=== PATIENT | female | born 1960 | race Caucasian/White ===

== ENCOUNTER 2017-08-22 19:26 | Emergency (ER) | payer BC, OTHER ==
--- NOTE | 2017-08-22 19:30 | PDOC ---
History of Present Illness - General History Source: Patient Exam Limitations: No Limitations - History of Present Illness Initial Comments: 08/22/17 20:02 The patient is a 56 year old female, (all live ) with past medical history of UTI (3 months ago), migraine headache, and lumbar disc disease presents to the emergency department with vaginal bleeding. The patient reports 3 weeks ago she started to experience pain similar to when she was ovulating in the past accompanied with vaginal itching. The week following she experienced breast pain. The patient reports yesterday she had suprepubic pain that radiates to her back with vaginal spotting. The patient reports she woke up today with heavy vaginal bleeding (10 pads changed since morning), shakes, headache and fatigue, took a advil in the morning with relief. The patient reports her LMP was 3 year ago and shes 3 year s/p menopause. 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 Denies chest pain, sob. Denies any history of anemia. Denies dizziness or lightheadedness. Denies nausea, vomiting, diarrhea or constipation. Denies any vaginal discharge. Denies dysuria, hematuria, frequency or urgency to urinate. Allergies: clindamycin and erythromycin base Social history: None history of smoking or illicit drugs use. Reports the occasional use of alcohol. Surgical history: None reported. PCP: Dr. Jason George <Sue Schaffer - Last Filed: 08/22/17 20:23> <Emily Cortes - Last Filed: 08/23/17 01:04> - General Chief Complaint: Vaginal Bleeding Stated Complaint: VAGINAL BLEEDING Time Seen by Provider: 08/22/17 19:29 Past History <Sue Schaffer - Last Filed: 08/22/17 20:23> - Suicide/Smoking/Psychosocial Hx Smoking History: Never smoked Hx Alcohol Use: No Drug/Substance Use Hx: No Substance Use Type: None <Emily Cortes - Last Filed: 08/23/17 01:04> - Past Medical History Allergies/Adverse Reactions: Allergies Allergy/AdvReac Type Severity Reaction Status Date / Time clindamycin Allergy Rash Verified 07/08/15 11:07 erythromycin base Allergy Verified 07/08/15 11:07 Home Medications: Ambulatory Orders NK [No Known Home Medication] 08/22/17 Review of Systems - Review of Systems Able to Perform ROS?: Yes Comments:: 08/22/17 20:07 CONSTITUTIONAL: Absent: fever, no chills, no fatigue EYES: Absent: visual changes ENT: Absent: ear pain, no sore throat CARDIOVASCULAR: Absent: chest pain, no palpitations RESPIRATORY: Absent: cough, no SOB GI: (+) suprapubic pain that radiates to her back. Absent: abdominal pain, no nausea, no vomiting, no constipation, no diarrhea GENITOURINARY: (+) heavy vaginal bleeding. Absent: dysuria, no frequency, no hematuria MUSKULOSKELETAL: Absent: back pain, no arthralgia, no myalgia SKIN: Absent: rash NEURO: Absent: headache <Sue Schaffer - Last Filed: 08/22/17 20:23> *Physical Exam - Vital Signs Last Vital Signs Temp Pulse Resp BP Pulse Ox 98.9 F 70 16 140/75 100 08/22/17 19:27 08/22/17 19:27 08/22/17 19:27 08/22/17 19:27 08/22/17 19:27 - Physical Exam Comments: 08/22/17 20:12 GENERAL: The patient is awake, alert, and fully oriented, in no acute distress. HEAD: Normal with no signs of trauma. EYES: Pupils equal, round and reactive to light, extraocular movements intact, sclera anicteric, conjunctiva clear with no pallor. ENT: Ears normal, nares patent, oropharynx clear without exudates. Moist mucous membranes. NECK: Normal range of motion, supple without lymphadenopathy, JVD, or masses. LUNGS: Breath sounds equal, clear to auscultation bilaterally. No wheeze/ crackles. HEART: Regular rate and rhythm, normal S1 and S2 without murmur or rub. ABDOMEN: (+) Suprapubic tenderness without guarding or rebound. No masses palpated.BS wnl. No hepatosplenomegaly. Pelvic: (+) Normal female external genitalia. Liquid blood without clots or vaginal clots. No masses or any other abnormalities. Cervix closed normal appearing without cervical motion tenderness. No adnexal tenderness or masses. EXTREMITIES: Normal range of motion, no edema. No clubbing or cyanosis. No cords, erythema, or tenderness. NEUROLOGICAL: Cranial nerves II through XII grossly intact. Normal speech, normal gait. PSYCH: Normal mood, normal affect. SKIN: Warm, Dry, normal turgor, no rashes or lesions noted. 08/22/17 20:23 <Sue Schaffer - Last Filed: 08/22/17 20:23> ED Treatment Course - LABORATORY CBC & Chemistry Diagram: 08/22/17 20:05 08/22/17 20:05 - ADDITIONAL ORDERS Additional order review: Laboratory Results 08/22/17 19:40 Urine Color Yellow Urine Appearance Clear Urine pH 8.0 Ur Specific [place] 1.015 Urine Protein Negative Urine Glucose (UA) Negative Urine Ketones Negative Urine Blood 2+ H Urine Nitrite Negative Urine Bilirubin Negative Urine Urobilinogen 0.2 Ur Leukocyte Esterase Negative Urine HCG, Qual Negative <Sue Schaffer - Last Filed: 08/22/17 20:23> - LABORATORY CBC & Chemistry Diagram: 08/22/17 20:05 08/22/17 20:05 <Emily Cortes - Last Filed: 08/23/17 01:04> Progress Note - Progress Note Progress Note: Documentation has been prepared under my direction and personally reviewed by me in its entirety. I attest that this documented accurately reflects all work, treatment, procedures and medical decision making performed by me. <Emily Cortes - Last Filed: 08/23/17 01:04> Medical Decision Making - Medical Decision Making 08/22/17 20:13 Documentation prepared by Sue Schaffer, acting as medical device sales representative for Emily Cortes MD. <Sue Schaffer - Last Filed: 08/22/17 20:23> - Medical Decision Making As noted above, this 56-year-old woman with history of menopause 2 years, presents with 2 day history of vaginal bleeding, accompanied by suprapubic and lower back pain. Of note, the patient had felt signs of ovulation a few weeks ago including breast tenderness and pelvic discomfort (similar to what she had felt during ovulation when she was cycling normally). No other recent symptoms. Exam as noted, including normal pelvic exam except for blood in vaginal vault. Laboratory evaluation shows negative PGU; CBC is normal without evidence of anemia; urinalysis and chemistry profile likewise showed no significant abnormality. Ultrasound shows thickened endometrium and a small subserosal leiomyoma. Otherwise, there are no significant findings. Results discussed with the patient. She states she feels significantly better after a liter of normal saline IV as well as oral hydration in preparation for the ultrasound. The patient does not have a hand button splitter in the area (having moved here a few years ago). She is currently consult during her insurance plan for local gynecologists. 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 She should return to the ER if she has severe, persistent bleeding/ develops severe pain or lightheadedness <Emily Cortes - Last Filed: 08/23/17 01:04> *DC/Admit/Observation/Transfer <Sue Schaffer - Last Filed: 08/22/17 20:23> <Emily Cortes - Last Filed: 08/23/17 01:04> Diagnosis at time of Disposition: Post-menopause bleeding - Discharge Dispostion Disposition: HOME Condition at time of disposition: Stable - Referrals Referrals: Jason George [Primary Care Provider] - Julian Carrillo MD [Staff Physician] - 2 Days - Patient Instructions Printed Discharge Instructions: DI for Vaginal Bleeding Additional Instructions: Drink plenty of fluids/eat regular meals as much as possible Ibuprofen/naproxen/acetaminophen as needed for pain Follow-up with hand button splitter ( or other as per insurance coverage) within 2-3 days Return to ER if you have severe pain/lightheadedness/persistent heavy bleeding - Post Discharge Activity
[2017-08-22 19:43] VITALS: BP 140/75; PULSE 70; TEMP 98.9; BMI 22.3
[2017-08-22] MEDS ORDERED: SODIUM CHLORIDE 1,000 ML IV STA (19:50)
[2017-08-22 19:51] LABS: HCG,QUALITATIVE URINE Negative
[2017-08-22 19:53] LABS: URINE APPEARANCE Clear; URINE BILIRUBIN Negative (NEGATIVE); URINE BLOOD 2+ (NEGATIVE); URINE COLOR YELLOW; URINE GLUCOSE (UA) Negative (NEGATIVE); URINE KETONE Negative (NEGATIVE); URINE LEUK ESTERASE Negative (NEGATIVE); URINE NITRITE Negative (NEGATIVE); URINE PROTEIN Negative (NEGATIVE); URINE UROBILINOGEN 0.2 (0.2-1.0)
[2017-08-22 20:21] LABS: BASO % 2.1 % (0-2.0); HEMOGLOBIN 14.5 GM/dl (10.7-15.3); MCH 30.2 pg (25.7-33.7); MCHC 34.5 g/dl (32.0-36.0); MEAN CELL VOLUME 87.5 fl (80-96); MEAN PLT VOLUME 8.1 fl (7.5-11.1); MONO % 8.3 % (3.8-10.2); NEUT % 56.6 % (42.8-82.8); PLATELET COUNT 397 K/MM3 (134-434); RDW 12.6 % (11.6-15.6); WHITE BLOOD COUNT 9.1 K/mm3 (4.0-10.8)
[2017-08-22 20:32] LABS: AMORP PHOS MODERATE /hpf (NONE SEEN); EPI CELLS 0-3 /HPF; URINE WBC 0-3 (0-5)
[2017-08-22 20:36] LABS: ALBUMIN 3.8 g/dl (3.5-5.0); ALK PHOS 71 U/L (32-92); ANION GAP 3 (8-16); BLOOD UREA NITROGEN 13 mg/dl (7-18); CALCIUM 9.2 mg/dl (8.4-10.2); CHLORIDE 108 mmol/L (98-107); CO2 26 mmol/L (22-28); CREATININE 0.8 mg/dl (0.6-1.3); GLUCOSE,RANDOM 101 mg/dl (74-106); POTASSIUM 4.3 mmol/L (3.5-5.1); SGOT/AST 16 U/L (10-42); SGPT/ALT 13 U/L (10-40); SODIUM 137 mmol/L (136-145); TOT PROT 6.5 g/dl (6.4-8.3)
[2017-08-22 21:10] LABS: BILIRUBIN,TOTAL < 0.5 mg/dl (0.2-1.0)
== END 2017-08-22 22:24 | disposition home or self-care (01) ==
LOC: FER 19:26
PROC: 3E0337Z Introduction of Electrolytic and Water Balance Substance into Peripheral Vein, Percutaneous Approach (ICD-10-PCS; principal; 2017-08-22)
DX: N95.0 Postmenopausal bleeding (principal)
CPT/HCPCS: 36415; 76856-TC; 80053; 81003; 81015; 84703; 85025; 99282-25; J7030

== ENCOUNTER 2022-05-17 18:49 | Emergency (ER) | payer OTHER ==
[2022-05-17 18:58] VITALS: BP 147/95; PULSE 90; RESP 18; TEMP 98; BMI 24.7
[2022-05-17] MEDS ORDERED: CIPROFLOXACIN HCL 0.3% OPHTH 2.5ML BOTTLE ONE (19:29)
[2022-05-17] MEDS ORDERED: CIPROFLOXACIN 0.3% EYE DROPS 5 ML BOTTLE OU SCH (19:30)
[2022-05-17] MEDS ORDERED: ACETAMINOPHEN 500 MG TABLET (FP) PO ONE (19:33)
[2022-05-17] MEDS ORDERED: ACETAMINOPHEN 500 MG TABLET (FP) ONE (19:34)
== END 2022-05-17 19:45 | disposition home or self-care (01) ==
LOC: FER 18:49
DX: H10.33 Unspecified acute conjunctivitis, bilateral (principal)
CPT/HCPCS: 99283-25